=== PATIENT | female | born 1940 | race African-American/Black ===

== ENCOUNTER 2021-02-01 05:59 | Inpatient (IN) ==
[2021-01-27 12:19] LABS: Basophils # 0.1 10*3/uL (0.0-0.2); Basophils % 0.8 % (0.0-0.8); Eosinophils # 0.1 10*3/uL (0.0-0.87); Eosinophils % 0.8 % (0.00-10.9); Hematocrit 37.9 VOL% (35.7-47.0); Hemoglobin 12.4 GM/DL (12.0-16.0); Immature Granulocytes % 0.5 %; Immature Granulocytes Absolute 0.03 #; Lymphocytes # 2.3 10*3/uL (1.4-4.0); Lymphocytes % 34.7 % (21.3-54.2); Mean Corpuscular HGB Conc 32.7 GM/DL (32-36); Mean Platelet Volume 10.1 FL (9.6-12.0); Monocytes % 10.7 % (1.7-12.7); Neutrophils % 52.5 % (38.7-73.9); Platelet Count 193 T/CUMM (130-400); Red Blood Count 4.92 MC/CUMM (3.8-5.5); Red Cell Distribution Width 15.9 % (9.3-17.3); White Blood Count 6.5 T/CUMM (4-12)
[2021-01-27 12:43] LABS: Albumin 3.6 G/DL (3.4-5.0); Bilirubin,Total 0.5 MG/DL (0.2-1.0); Osmolality,Calculated 280.1 MOS/KG (273-304); Potassium 5.7 MMOL/L (3.5-5.1); Total Protein 7.7 G/DL (6.4-8.2)
[~2021-02-01 05:59] MED LIST: VANCOMYCIN 1,000 MG VIAL ONE
[2021-02-01] MEDS ORDERED: THROMBIN TOPICAL (RECOMBINANT) 5,000 UNIT VIAL TOP ONE (06:40)
[2021-02-01] MEDS ORDERED: VANCOMYCIN 500 MG VIAL ONE (06:41)
[2021-02-01] MEDS ORDERED: LIDOCAINE 1% 20 ML VIAL ONE (06:41)
[2021-02-01] MEDS ORDERED: TISSUE ADHESIVE 1 EACH APPLICATOR TOP ONE (06:41)
[2021-02-01] MEDS ORDERED: HEPARIN 5,000 UNIT/1 ML VIAL ONE (06:41)
[2021-02-01 06:58] LABS: Calcium 8.8 MG/DL (8.5-10.1); Osmolality,Calculated 281.1 MOS/KG (273-304); Potassium 3.9 MMOL/L (3.5-5.1)
[2021-02-01] MEDS ORDERED: HEPARIN/NACL 0.9% 2 UNITS/ML 1,000 UNIT/500 ML BAG IV ONE (06:59)
[2021-02-01] MEDS ORDERED: DEXMEDETOMIDINE 200 MCG/2 ML VIAL ONE (07:08)
[2021-02-01] MEDS ORDERED: HEPARIN/NACL 0.9% 2 UNITS/ML 6,000 UNIT/3,000 ML BAG IV ONE (07:27)
[2021-02-01] MEDS ORDERED: LACTATED RINGERS 1,000 ML IV SCH (07:30)
[2021-02-01] MEDS ORDERED: HEPARIN/NACL 0.9% 2 UNITS/ML 2,000 UNIT/1,000 ML BAG IV ONE (10:19)
[2021-02-01 11:16] LABS: Bilirubin,Urine Negative (Negative); Blood, Urine Negative (Negative); Glucose,Urine (UA) Negative (Negative); Ketones,Urine Negative (Negative); Mucus,Urine Few /LPF (Occasional); Nitrite,Urine Negative (Negative); Protein,Urine Negative; RBC,Urine <1 /HPF (0-4); Squamous Epithelial Cell,Urine Occasional /HPF (0-10); Urine Appearance CLEAR (Clear); Urine Color Yellow (Yellow); Urine Urobilinogen < 2.0 EU/DL (0.2-1.0)
[2021-02-01] MEDS ORDERED: LIDOCAINE 2% 5 ML VIAL ONE (11:34)
[2021-02-01] MEDS ORDERED: NEOSTIGMINE 10 MG/10 ML VIAL ONE (11:34)
[2021-02-01] MEDS ORDERED: DEXAMETHASONE 4 MG/1 ML VIAL ONE (11:35)
[2021-02-01] MEDS ORDERED: SEVOFLURANE 1 UNIT/15 MINUTE INH ONE (11:35)
[2021-02-01] MEDS ORDERED: HEPARIN 10,000 UNIT/10 ML VIAL ONE (11:35)
[2021-02-01] MEDS ORDERED: SUCCINYLCHOLINE 200 MG/10 ML VIAL ONE (11:35)
[2021-02-01] MEDS ORDERED: ETOMIDATE 40 MG/20 ML VIAL IV ONE (11:35)
[2021-02-01] MEDS ORDERED: fentaNYL 100 MCG/2 ML VIAL ONE (11:35)
[2021-02-01] MEDS ORDERED: ROCURONIUM 50 MG/5 ML VIAL IV ONE (11:35)
[2021-02-01] MEDS ORDERED: ONDANSETRON 4 MG/2 ML VIAL ONE (11:35)
[2021-02-01] MEDS ORDERED: GLYCOPYRROLATE 0.4 MG/2 ML VIAL ONE (11:35)
[2021-02-01] MEDS ORDERED: NON-FORMULARY MEDICATION (Linaclotide [Linzess] 72 mcg Capsule) PO PRN (11:44)
[2021-02-01] MEDS ORDERED: ONDANSETRON 4 MG/2 ML VIAL IV PRN (11:52)
[2021-02-01] MEDS ORDERED: HYDROmorphone 2 MG/1 ML VIAL IV PRN (11:52)
[2021-02-01 12:06] LABS: Hematocrit 30.7 VOL% (35.7-47.0); Hemoglobin 10.3 GM/DL (12.0-16.0)
[2021-02-01] MEDS: LACTATED RINGERS 1,000 ML IV SCH (15:25)
[2021-02-01] MEDS: HYDROmorphone 2 MG/1 ML VIAL IV PRN (19:50)
[2021-02-01] MEDS: SIMVASTATIN 20 MG TABLET PO SCH (22:27)
[2021-02-01] MEDS: MONTELUKAST 10 MG TABLET PO SCH (22:27)
[2021-02-01] MEDS: traZODone 50 MG TABLET PO SCH (22:27)
[2021-02-02] MEDS: LACTATED RINGERS 1,000 ML IV SCH ×3 (02:37→15:25)
[2021-02-02 04:56] LABS: Hematocrit 22.8 VOL% (35.7-47.0); Hemoglobin 7.7 GM/DL (12.0-16.0)
[2021-02-02 05:22] LABS: Calcium 7.6 MG/DL (8.5-10.1); Osmolality,Calculated 281.1 MOS/KG (273-304); Potassium 3.9 MMOL/L (3.5-5.1)
[2021-02-02] MEDS: amLODIPine 10 MG TABLET PO SCH (08:38)
[2021-02-02] MEDS: PANTOPRAZOLE 40 MG TABLET PO SCH (08:38)
[2021-02-02] MEDS: METOPROLOL TARTRATE 50 MG TABLET PO SCH (08:38)
[2021-02-02] MEDS: oxyCODONE/ACETAMINOPHEN 5-325 MG TABLET PO PRN ×2 (08:38→16:39)
[2021-02-02] MEDS: NICOTINE 21 MG/24 HR PATCH TRANSDERM SCH (15:01)
[2021-02-02] MEDS: traZODone 50 MG TABLET PO SCH (21:47)
[2021-02-02] MEDS: SIMVASTATIN 20 MG TABLET PO SCH (21:47)
[2021-02-02] MEDS: MONTELUKAST 10 MG TABLET PO SCH (21:47)
[2021-02-02] MEDS: HYDROmorphone 2 MG/1 ML VIAL IV PRN (21:48)
[2021-02-03] MEDS: LACTATED RINGERS 1,000 ML IV SCH ×2 (05:31→05:38)
[2021-02-03 06:27] LABS: Basophils % 0.2 % (0.0-0.8); Hematocrit 36.2 VOL% (35.7-47.0); Immature Granulocytes % 0.8 %; Immature Granulocytes Absolute 0.11 #; Lymphocytes % 15.5 % (21.3-54.2); Mean Corpuscular Volume 80.6 FL (87-102); Mean Platelet Volume 10.3 FL (9.6-12.0); Monocytes % 13.1 % (1.7-12.7); Neutrophils % 70.4 % (38.7-73.9); Platelet Count 103 T/CUMM (130-400); Red Blood Count 4.49 MC/CUMM (3.8-5.5); Red Cell Distribution Width 16.4 % (9.3-17.3); White Blood Count 13.2 T/CUMM (4-12)
[2021-02-03 06:30] LABS: Hemoglobin 12.3 GM/DL (12.0-16.0)
[2021-02-03 07:00] LABS: Hypochromasia Slight; Platelet Estimate Decreased
[2021-02-03] MEDS: NICOTINE 21 MG/24 HR PATCH TRANSDERM SCH (08:52)
[2021-02-03] MEDS: amLODIPine 10 MG TABLET PO SCH (08:52)
[2021-02-03] MEDS: oxyCODONE/ACETAMINOPHEN 5-325 MG TABLET PO PRN (08:52)
[2021-02-03] MEDS: PANTOPRAZOLE 40 MG TABLET PO SCH (08:52)
[2021-02-03] MEDS: METOPROLOL TARTRATE 50 MG TABLET PO SCH (08:52)
[2021-02-03] MEDS ORDERED: BISACODYL 5 MG TABLET PO PRN (09:29)
[2021-02-03] MEDS ORDERED: NICOTINE 21 MG/24 HR PATCH TRANSDERM SCH (14:20)
[2021-02-03 16:41] VITALS: BP 125/55
== END 2021-02-03 15:16 | disposition home or self-care (01) | DRG 269 ==
LOC: N.OR 05:59 → N.SDSINP 06:01 → EDSTATUS 07:30 → N.SDSINP 11:41 → N.4E 13:45
PROVIDERS: ADMIT Surgery; ATTEND Surgery
PROC: IRERAAA (2021-02-01 07:59)

== ENCOUNTER 2021-02-13 16:27 | Inpatient (IN) ==
[2021-02-13 17:24] LABS: Basophils % 0.2 % (0.0-0.8); Hematocrit 42.1 VOL% (35.7-47.0); Immature Granulocytes % 0.4 %; Immature Granulocytes Absolute 0.05 #; Lymphocytes # 1.3 10*3/uL (1.4-4.0); Mean Corpuscular HGB Conc 33.3 GM/DL (32-36); Mean Corpuscular Volume 79.7 FL (87-102); Mean Platelet Volume 9.4 FL (9.6-12.0); Monocytes % 5.9 % (1.7-12.7); Neutrophils % 84.5 % (38.7-73.9); Platelet Count 258 T/CUMM (130-400); Red Blood Count 5.28 MC/CUMM (3.8-5.5); Red Cell Distribution Width 16.6 % (9.3-17.3); White Blood Count 14.2 T/CUMM (4-12)
[2021-02-13 17:37] LABS: PT Patient Result 10.7 SECS (10.5-12.0); Partial Thromboplastin Time 27.3 SECS (23.9-33.8)
[2021-02-13] MEDS: HEPARIN DRIP 25,000 UNITS/500 ML PREMIX IV SCH (17:58)
[2021-02-13 17:59] LABS: Albumin 3.2 G/DL (3.4-5.0); Bilirubin,Total 0.4 MG/DL (0.2-1.0); Calcium 8.7 MG/DL (8.5-10.1); Osmolality,Calculated 280.4 MOS/KG (273-304); Potassium 4.3 MMOL/L (3.5-5.1); Total Protein 8.2 G/DL (6.4-8.2)
[2021-02-13] MEDS ORDERED: GLUCAGON 1 MG VIAL IM PRN (19:54)
[2021-02-13] MEDS ORDERED: DEXTROSE 50% 25 GM/50 ML VIAL IV PRN (19:54)
[2021-02-13] MEDS ORDERED: NON-FORMULARY MEDICATION (Linaclotide [Linzess] 72 mcg Capsule) PO PRN (20:01)
[2021-02-13] MEDS ORDERED: VANCOMYCIN INJ 1,000 MG in SODIUM CHLORIDE 0.9% 250 ML IV STA (20:13)
[2021-02-13] MEDS: MONTELUKAST 10 MG TABLET PO SCH (22:48)
[2021-02-13] MEDS: SODIUM CHLORIDE 0.9% 1,000 ML IV SCH (22:58)
[2021-02-14 00:25] LABS: Basophils % 0.3 % (0.0-0.8); Eosinophils % 0.1 % (0.00-10.9); Hematocrit 36.2 VOL% (35.7-47.0); Hemoglobin 12.4 GM/DL (12.0-16.0); Immature Granulocytes % 0.3 %; Immature Granulocytes Absolute 0.03 #; Lymphocytes # 2.1 10*3/uL (1.4-4.0); Mean Corpuscular HGB Conc 34.3 GM/DL (32-36); Mean Corpuscular Volume 78.7 FL (87-102); Mean Platelet Volume 9.4 FL (9.6-12.0); Monocytes % 10.1 % (1.7-12.7); Neutrophils % 69.2 % (38.7-73.9); Platelet Count 211 T/CUMM (130-400); Red Cell Distribution Width 16.7 % (9.3-17.3); White Blood Count 10.5 T/CUMM (4-12)
[2021-02-14 00:50] LABS: Alanine Aminotransferase 13 U/L (13-56); Albumin 2.8 G/DL (3.4-5.0); Alkaline Phosphatase 56 U/L (45-117); Aspartate Amino Transferase 18 U/L (0-37); Bilirubin,Indirect 0.3 MG/DL (0.0-1.0); Bilirubin,Total < 0.39 MG/DL (0.2-1.0); Blood Urea Nitrogen 13 MG/DL (7-18); Calcium 8.4 MG/DL (8.5-10.1); Carbon Dioxide 24 MMOL/L (21-32); Estimated Glom Filtration Rate 85 ML/MIN; Glucose 103 MG/DL (74-106); HDL Cholesterol 46 MG/DL (40-60); Osmolality,Calculated 274.7 MOS/KG (273-304); Potassium 3.9 MMOL/L (3.5-5.1); Sodium 138 MMOL/L (136-145); Total Protein 6.8 G/DL (6.4-8.2); Triglycerides 57 MG/DL (2-150); VLDL Cholesterol 11.4 MG/DL
[2021-02-14] MEDS: SODIUM CHLORIDE 0.9% 1,000 ML IV SCH ×3 (03:25→16:47)
[2021-02-14] MEDS: VANCOMYCIN INJ 750 MG in SODIUM CHLORIDE 0.9% 250 ML IV SCH ×2 (09:06→20:56)
[2021-02-14] MEDS: amLODIPine 10 MG TABLET PO SCH (09:07)
[2021-02-14] MEDS: PANTOPRAZOLE 40 MG TABLET PO SCH (09:07)
[2021-02-14] MEDS: METOPROLOL TARTRATE 50 MG TABLET PO SCH (09:07)
[2021-02-14] MEDS: NICOTINE 21 MG/24 HR PATCH TRANSDERM SCH (16:45)
[2021-02-14] MEDS: HEPARIN DRIP 25,000 UNITS/500 ML PREMIX IV SCH (19:07)
[2021-02-14] MEDS: MONTELUKAST 10 MG TABLET PO SCH (20:56)
[2021-02-14] MEDS: SIMVASTATIN 20 MG TABLET PO SCH (20:56)
[2021-02-15] MEDS: SODIUM CHLORIDE 0.9% 1,000 ML IV SCH ×3 (02:08→11:38)
[2021-02-15] MEDS: NICOTINE 21 MG/24 HR PATCH TRANSDERM SCH ×2 (08:09→08:15)
[2021-02-15] MEDS: VANCOMYCIN INJ 750 MG in SODIUM CHLORIDE 0.9% 250 ML IV SCH ×3 (08:09→20:57)
[2021-02-15] MEDS: METOPROLOL TARTRATE 50 MG TABLET PO SCH (08:14)
[2021-02-15] MEDS: amLODIPine 10 MG TABLET PO SCH (08:15)
[2021-02-15] MEDS: PANTOPRAZOLE 40 MG TABLET PO SCH (08:15)
[2021-02-15 08:43] LABS: Basophils % 0.4 % (0.0-0.8); Eosinophils % 0.2 % (0.00-10.9); Hematocrit 37.8 VOL% (35.7-47.0); Hemoglobin 12.6 GM/DL (12.0-16.0); Immature Granulocytes % 0.3 %; Immature Granulocytes Absolute 0.03 #; Lymphocytes % 19.5 % (21.3-54.2); Mean Corpuscular HGB Conc 33.3 GM/DL (32-36); Mean Corpuscular Volume 79.9 FL (87-102); Mean Platelet Volume 9.5 FL (9.6-12.0); Monocytes % 7.5 % (1.7-12.7); Neutrophils % 72.1 % (38.7-73.9); Platelet Count 247 T/CUMM (130-400); Red Blood Count 4.73 MC/CUMM (3.8-5.5); Red Cell Distribution Width 16.7 % (9.3-17.3); White Blood Count 10.1 T/CUMM (4-12)
[2021-02-15 09:10] LABS: Calcium 7.9 MG/DL (8.5-10.1); Osmolality,Calculated 277.3 MOS/KG (273-304); Potassium 3.2 MMOL/L (3.5-5.1)
[2021-02-15] MEDS ORDERED: MAGNESIUM SULF RIDER 2 GM/50 ML PREMIX IV PRN (10:57)
[2021-02-15] MEDS ORDERED: MAGNESIUM SULF RIDER 4 GM/100 ML PREMIX IV PRN (10:57)
[2021-02-15] MEDS ORDERED: THROMBIN TOPICAL (RECOMBINANT) 5,000 UNIT VIAL TOP ONE (11:21)
[2021-02-15] MEDS ORDERED: HEPARIN 5,000 UNIT/1 ML VIAL ONE (11:21)
[2021-02-15] MEDS ORDERED: VANCOMYCIN 500 MG VIAL ONE (11:21)
[2021-02-15] MEDS ORDERED: propofoL 200 MG/20 ML VIAL IV ONE (11:24)
[2021-02-15] MEDS ORDERED: fentaNYL 100 MCG/2 ML VIAL ONE (11:24)
[2021-02-15] MEDS ORDERED: ROCURONIUM 50 MG/5 ML VIAL IV ONE (11:24)
[2021-02-15] MEDS ORDERED: ETOMIDATE 40 MG/20 ML VIAL IV ONE (11:24)
[2021-02-15] MEDS ORDERED: LIDOCAINE 2% 5 ML VIAL ONE (11:24)
[2021-02-15] MEDS ORDERED: FAMOTIDINE 20 MG/2 ML VIAL IV ONE (11:36)
[2021-02-15] MEDS ORDERED: HEPARIN 10,000 UNIT/10 ML VIAL ONE (11:36)
[2021-02-15] MEDS: LACTATED RINGERS 1,000 ML IV SCH ×2 (12:15→12:59)
[2021-02-15] MEDS ORDERED: METOPROLOL TARTRATE 5 MG/5 ML VIAL IV ONE (13:29)
[2021-02-15] MEDS ORDERED: PHENYLEPHRINE 1 MG/10 ML SYRINGE IV ONE (13:42)
[2021-02-15] MEDS ORDERED: TISSUE ADHESIVE 1 EACH APPLICATOR TOP ONE (15:39)
[2021-02-15] MEDS ORDERED: ONDANSETRON 4 MG/2 ML VIAL ONE ×2 (15:50→16:38)
[2021-02-15] MEDS ORDERED: KETOROLAC 30 MG/1 ML VIAL ONE (15:56)
[2021-02-15] MEDS ORDERED: SEVOFLURANE 1 UNIT/15 MINUTE INH ONE (16:06)
[2021-02-15] MEDS ORDERED: LABETALOL 20 MG/4 ML SYRINGE IV ONE (16:14)
[2021-02-15] MEDS ORDERED: ONDANSETRON 4 MG/2 ML VIAL IV PRN ×2 (16:36→18:25)
[2021-02-15] MEDS ORDERED: HYDROmorphone 2 MG/1 ML VIAL ONE (16:38)
[2021-02-15] MEDS: HYDROmorphone 2 MG/1 ML VIAL IV PRN ×2 (16:40→16:54)
[2021-02-15] MEDS: HEPARIN DRIP 25,000 UNITS/500 ML PREMIX IV SCH (17:50)
[2021-02-15] MEDS: MORPHINE 2 MG/1 ML SYRINGE IV PRN (19:57)
[2021-02-15] MEDS: MONTELUKAST 10 MG TABLET PO SCH (20:53)
[2021-02-15] MEDS: DOCUSATE SODIUM 100 MG CAPSULE PO SCH (20:53)
[2021-02-15] MEDS: SIMVASTATIN 20 MG TABLET PO SCH (20:53)
[2021-02-15] MEDS: POTASSIUM CHLORIDE RIDER 10 MEQ/100 ML PREMIX IV PRN (23:04)
[2021-02-16] MEDS: POTASSIUM CHLORIDE RIDER 10 MEQ/100 ML PREMIX IV PRN ×3 (00:37→03:38)
[2021-02-16] MEDS: MORPHINE 2 MG/1 ML SYRINGE IV PRN ×3 (02:17→18:40)
[2021-02-16 05:21] LABS: Basophils % 0.1 % (0.0-0.8); Hematocrit 23.7 VOL% (35.7-47.0); Immature Granulocytes % 1.2 %; Immature Granulocytes Absolute 0.18 #; Lymphocytes # 1.2 10*3/uL (1.4-4.0); Lymphocytes % 8.3 % (21.3-54.2); Mean Corpuscular HGB Conc 33.8 GM/DL (32-36); Mean Corpuscular Volume 79.8 FL (87-102); Mean Platelet Volume 10.1 FL (9.6-12.0); Monocytes % 6.6 % (1.7-12.7); Neutrophils % 83.8 % (38.7-73.9); Platelet Count 192 T/CUMM (130-400); Red Blood Count 2.97 MC/CUMM (3.8-5.5); White Blood Count 14.6 T/CUMM (4-12)
[2021-02-16] MEDS: SODIUM CHLORIDE 0.9% 1,000 ML IV SCH ×2 (05:33→08:39)
[2021-02-16 05:39] LABS: Calcium 7.3 MG/DL (8.5-10.1); Osmolality,Calculated 274.7 MOS/KG (273-304); Potassium 4.5 MMOL/L (3.5-5.1)
[2021-02-16 05:55] LABS: Hypochromasia 1+; Lymphocytes 10 % (20-55); Microcytosis 1+; Platelet Estimate Adequate; Segmented Neutrophils 86 % (50-85); Total Cells Counted 100
[2021-02-16 07:33] LABS: Hematocrit 23.8 VOL% (35.7-47.0); Hemoglobin 7.9 GM/DL (12.0-16.0)
[2021-02-16] MEDS ORDERED: ENOXAPARIN 40 MG/0.4 ML SYRINGE SUBCUT ONE (08:00)
[2021-02-16] MEDS ORDERED: SODIUM CHLORIDE 0.9% 500 ML IV ONE (08:11)
[2021-02-16] MEDS: PANTOPRAZOLE 40 MG TABLET PO SCH (08:40)
[2021-02-16] MEDS: NICOTINE 21 MG/24 HR PATCH TRANSDERM SCH (08:40)
[2021-02-16] MEDS: DOCUSATE SODIUM 100 MG CAPSULE PO SCH ×2 (08:40→20:58)
[2021-02-16] MEDS: METOPROLOL TARTRATE 50 MG TABLET PO SCH (08:40)
[2021-02-16] MEDS: RIVAROXABAN 2.5 MG TABLET PO SCH ×3 (08:40→20:58)
[2021-02-16] MEDS: VANCOMYCIN INJ 750 MG in SODIUM CHLORIDE 0.9% 250 ML IV SCH (08:42)
[2021-02-16] MEDS ORDERED: SODIUM CHLORIDE 0.9% 1,000 ML IV PRN (11:57)
[2021-02-16 20:14] LABS: Hematocrit 32.7 VOL% (35.7-47.0); Hemoglobin 10.9 GM/DL (12.0-16.0)
[2021-02-16] MEDS: SIMVASTATIN 20 MG TABLET PO SCH (20:58)
[2021-02-16] MEDS: MONTELUKAST 10 MG TABLET PO SCH (20:58)
[2021-02-17] MEDS: MORPHINE 2 MG/1 ML SYRINGE IV PRN ×4 (00:05→20:42)
[2021-02-17 05:08] LABS: Basophils % 0.2 % (0.0-0.8); Eosinophils % 0.4 % (0.00-10.9); Hematocrit 30.6 VOL% (35.7-47.0); Hemoglobin 10.4 GM/DL (12.0-16.0); Immature Granulocytes % 0.8 %; Immature Granulocytes Absolute 0.09 #; Lymphocytes # 1.5 10*3/uL (1.4-4.0); Mean Platelet Volume 10.1 FL (9.6-12.0); Monocytes % 9.3 % (1.7-12.7); Neutrophils % 75.3 % (38.7-73.9); Platelet Count 142 T/CUMM (130-400); Red Blood Count 3.73 MC/CUMM (3.8-5.5); Red Cell Distribution Width 16.7 % (9.3-17.3); White Blood Count 10.6 T/CUMM (4-12)
[2021-02-17 05:37] LABS: Albumin 2.2 G/DL (3.4-5.0); Bilirubin,Total 1.6 MG/DL (0.20-1.00); Calcium 7.2 MG/DL (8.5-10.1); Osmolality,Calculated 275.5 MOS/KG (273-304); Potassium 3.9 MMOL/L (3.5-5.1); Total Protein 5.3 G/DL (6.4-8.2)
[2021-02-17] MEDS: PANTOPRAZOLE 40 MG TABLET PO SCH (08:31)
[2021-02-17] MEDS: NICOTINE 21 MG/24 HR PATCH TRANSDERM SCH (08:31)
[2021-02-17] MEDS: RIVAROXABAN 2.5 MG TABLET PO SCH ×2 (08:31→20:35)
[2021-02-17] MEDS: DOCUSATE SODIUM 100 MG CAPSULE PO SCH ×2 (08:31→20:35)
[2021-02-17] MEDS: METOPROLOL TARTRATE 50 MG TABLET PO SCH (08:35)
[2021-02-17 18:02] LABS: Bilirubin,Urine Negative (Negative); Blood, Urine Moderate mg/dL (Negative); Glucose,Urine (UA) Negative (Negative); Ketones,Urine Negative (Negative); Mucus,Urine Occasional /LPF (Occasional); Nitrite,Urine Negative (Negative); Protein,Urine Negative; RBC,Urine 52 /HPF (0-4); Squamous Epithelial Cell,Urine Occasional /HPF (0-10); Urine Appearance Slightly Hazy (Clear); Urine Color Yellow (Yellow); Urine Specific Gravity 1.012 (1.001-1.035)
[2021-02-17] MEDS: SIMVASTATIN 20 MG TABLET PO SCH (20:35)
[2021-02-17] MEDS: MONTELUKAST 10 MG TABLET PO SCH (20:35)
[2021-02-18] MEDS: MORPHINE 2 MG/1 ML SYRINGE IV PRN ×3 (02:21→19:11)
[2021-02-18 06:27] LABS: Basophils % 0.2 % (0.0-0.8); Eosinophils % 0.1 % (0.00-10.9); Hematocrit 30.4 VOL% (35.7-47.0); Hemoglobin 10.5 GM/DL (12.0-16.0); Immature Granulocytes % 0.8 %; Immature Granulocytes Absolute 0.12 #; Lymphocytes # 1.5 10*3/uL (1.4-4.0); Lymphocytes % 9.9 % (21.3-54.2); Mean Corpuscular HGB Conc 34.5 GM/DL (32-36); Mean Corpuscular Volume 81.9 FL (87-102); Mean Platelet Volume 10.4 FL (9.6-12.0); Platelet Count 185 T/CUMM (130-400); Red Blood Count 3.71 MC/CUMM (3.8-5.5); Red Cell Distribution Width 16.8 % (9.3-17.3); White Blood Count 14.8 T/CUMM (4-12)
[2021-02-18 06:58] LABS: Albumin 2.3 G/DL (3.4-5.0); Bilirubin,Total 1.8 MG/DL (0.20-1.00); Osmolality,Calculated 278.3 MOS/KG (273-304); Potassium 3.8 MMOL/L (3.5-5.1); Total Protein 6.2 G/DL (6.4-8.2)
[2021-02-18] MEDS: DOCUSATE SODIUM 100 MG CAPSULE PO SCH ×2 (09:13→21:28)
[2021-02-18] MEDS: METOPROLOL TARTRATE 50 MG TABLET PO SCH (09:13)
[2021-02-18] MEDS: RIVAROXABAN 2.5 MG TABLET PO SCH ×2 (09:14→21:28)
[2021-02-18] MEDS: NICOTINE 21 MG/24 HR PATCH TRANSDERM SCH (09:14)
[2021-02-18] MEDS: PANTOPRAZOLE 40 MG TABLET PO SCH (09:14)
[2021-02-18] MEDS: MULTIVITAMIN (INTRINSIC) CAPSULE PO SCH (10:50)
[2021-02-18] MEDS: GABAPENTIN 100 MG CAPSULE PO SCH ×2 (10:50→21:28)
[2021-02-18] MEDS: SIMVASTATIN 20 MG TABLET PO SCH (21:28)
[2021-02-18] MEDS: MONTELUKAST 10 MG TABLET PO SCH (21:28)
[2021-02-19 05:39] LABS: Basophils % 0.3 % (0.0-0.8); Eosinophils % 0.3 % (0.00-10.9); Hematocrit 30.2 VOL% (35.7-47.0); Hemoglobin 10.2 GM/DL (12.0-16.0); Immature Granulocytes % 0.9 %; Immature Granulocytes Absolute 0.11 #; Lymphocytes # 1.4 10*3/uL (1.4-4.0); Lymphocytes % 12.4 % (21.3-54.2); Mean Corpuscular HGB Conc 33.8 GM/DL (32-36); Mean Corpuscular Volume 83.4 FL (87-102); Mean Platelet Volume 10.1 FL (9.6-12.0); Neutrophils % 74.1 % (38.7-73.9); Platelet Count 187 T/CUMM (130-400); Red Blood Count 3.62 MC/CUMM (3.8-5.5); Red Cell Distribution Width 17.2 % (9.3-17.3); White Blood Count 11.6 T/CUMM (4-12)
[2021-02-19 06:01] LABS: Albumin 2.2 G/DL (3.4-5.0); Bilirubin,Total 0.8 MG/DL (0.20-1.00); Calcium 8.3 MG/DL (8.5-10.1); Potassium 3.6 MMOL/L (3.5-5.1); Total Protein 5.9 G/DL (6.4-8.2)
[2021-02-19 06:04] LABS: Hypochromasia 1+; Microcytosis 1+; Ovalocytes Slight
[2021-02-19 06:05] LABS: Platelet Estimate Adequate
[2021-02-19 06:09] LABS: Osmolality,Calculated 274.5 MOS/KG (273-304)
[2021-02-19] MEDS: MULTIVITAMIN (INTRINSIC) CAPSULE PO SCH (09:40)
[2021-02-19] MEDS: METOPROLOL TARTRATE 50 MG TABLET PO SCH (09:40)
[2021-02-19] MEDS: RIVAROXABAN 2.5 MG TABLET PO SCH ×2 (09:40→20:13)
[2021-02-19] MEDS: DOCUSATE SODIUM 100 MG CAPSULE PO SCH ×2 (09:40→20:13)
[2021-02-19] MEDS: PANTOPRAZOLE 40 MG TABLET PO SCH (09:40)
[2021-02-19] MEDS: GABAPENTIN 100 MG CAPSULE PO SCH ×2 (09:40→20:13)
[2021-02-19] MEDS: NICOTINE 21 MG/24 HR PATCH TRANSDERM SCH (12:44)
[2021-02-19] MEDS ORDERED: VANCOMYCIN INJ 1,000 MG in SODIUM CHLORIDE 0.9% 250 ML IV ONE (17:00)
[2021-02-19] MEDS: MONTELUKAST 10 MG TABLET PO SCH (20:13)
[2021-02-19] MEDS: MORPHINE 2 MG/1 ML SYRINGE IV PRN (20:13)
[2021-02-19] MEDS: SIMVASTATIN 20 MG TABLET PO SCH (20:13)
[2021-02-20 07:31] LABS: Basophils # 0.1 10*3/uL (0.0-0.2); Basophils % 0.5 % (0.0-0.8); Eosinophils # 0.1 10*3/uL (0.0-0.87); Eosinophils % 0.6 % (0.00-10.9); Hematocrit 32.7 VOL% (35.7-47.0); Hemoglobin 11.2 GM/DL (12.0-16.0); Immature Granulocytes % 0.8 %; Immature Granulocytes Absolute 0.08 #; Lymphocytes # 1.4 10*3/uL (1.4-4.0); Lymphocytes % 13.9 % (21.3-54.2); Mean Corpuscular HGB Conc 34.3 GM/DL (32-36); Mean Corpuscular Volume 82.4 FL (87-102); Mean Platelet Volume 9.7 FL (9.6-12.0); Monocytes % 14.5 % (1.7-12.7); Neutrophils % 69.7 % (38.7-73.9); Platelet Count 154 T/CUMM (130-400); Red Blood Count 3.97 MC/CUMM (3.8-5.5); Red Cell Distribution Width 17.6 % (9.3-17.3); White Blood Count 10.2 T/CUMM (4-12)
[2021-02-20 07:57] LABS: Calcium 8.1 MG/DL (8.5-10.1); Osmolality,Calculated 275.4 MOS/KG (273-304); Potassium 4.6 MMOL/L (3.5-5.1)
[2021-02-20] MEDS: DOCUSATE SODIUM 100 MG CAPSULE PO SCH ×2 (09:42→21:22)
[2021-02-20] MEDS: GABAPENTIN 100 MG CAPSULE PO SCH ×2 (09:42→21:22)
[2021-02-20] MEDS: METOPROLOL TARTRATE 50 MG TABLET PO SCH (09:42)
[2021-02-20] MEDS: MULTIVITAMIN (INTRINSIC) CAPSULE PO SCH (09:43)
[2021-02-20] MEDS: RIVAROXABAN 2.5 MG TABLET PO SCH ×2 (09:43→21:22)
[2021-02-20] MEDS: PANTOPRAZOLE 40 MG TABLET PO SCH (09:43)
[2021-02-20] MEDS: NICOTINE 21 MG/24 HR PATCH TRANSDERM SCH (09:43)
[2021-02-20] MEDS: MORPHINE 2 MG/1 ML SYRINGE IV PRN ×2 (11:28→21:25)
[2021-02-20] MEDS: MONTELUKAST 10 MG TABLET PO SCH (21:22)
[2021-02-20] MEDS: SIMVASTATIN 20 MG TABLET PO SCH (21:22)
[2021-02-21] MEDS: DOCUSATE SODIUM 100 MG CAPSULE PO SCH (09:52)
[2021-02-21] MEDS: GABAPENTIN 100 MG CAPSULE PO SCH (09:52)
[2021-02-21] MEDS: METOPROLOL TARTRATE 50 MG TABLET PO SCH (09:52)
[2021-02-21] MEDS: RIVAROXABAN 2.5 MG TABLET PO SCH (09:53)
[2021-02-21] MEDS: NICOTINE 21 MG/24 HR PATCH TRANSDERM SCH (09:53)
[2021-02-21] MEDS: PANTOPRAZOLE 40 MG TABLET PO SCH (09:53)
[2021-02-21] MEDS: MULTIVITAMIN (INTRINSIC) CAPSULE PO SCH (09:53)
[2021-02-21 14:56] VITALS: BP 125/51
== END 2021-02-21 14:50 | disposition swing bed (61) | DRG 254 ==
LOC: EDUNIT# → EDBD → N.ED 16:27 → SUATTDRO 19:54 → N.EDINP 19:54 → N.3E 21:44
PROVIDERS: ADMIT Internal Medicine; ATTEND Internal Medicine Nephrology
PROC: IRAGPEL (2021-02-15 13:00)